=== PATIENT | female | born 2000 | race Caucasian/White ===

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

== ENCOUNTER → 2021-09-29 | Outpatient (CLI) | payer OTHER ==
--- NOTE | 2021-09-29 09:02 | US ---
EXAMINATION TYPE: US abdomen complete DATE OF EXAM: 09/29/2021 COMPARISON: NONE CLINICAL HISTORY: K21.9 EAOPHAGEAL REFLUX,R10.12 LUQ PAIN,R11.2 NAUS. Nausea EXAM MEASUREMENTS: Liver Length: 17.7 cm Gallbladder Wall: .2 cm CBD: .5 cm Spleen: 12.8 cm Right Kidney: 9.6 x 3.7 x 5.7 cm Left Kidney: 10.2 x 4.8 x 4.2 cm Pancreas: Tail obscured by overlying bowel gas Liver: wnl Gallbladder: wnl Evidence for sonographic Garcia's sign: No CBD: wnl Spleen: wnl Right Kidney: wnl Left Kidney: wnl Upper IVC: wnl Abd Aorta: wnl The liver is homogenous. The intrahepatic portion of the IVC and proximal abdominal aorta are within normal limits. There is no evidence of cholelithiasis. Common bile duct is unremarkable. The visu alized portions of the pancreas are homogenous. The spleen is unremarkable. Kidneys are symmetric a nd free of hydronephrosis. No renal lesions are seen. IMPRESSION: WNL
--- NOTE | 2021-09-29 09:42 | FL ---
EXAMINATION TYPE: FL UGI DATE OF EXAM: 09/29/2021 CLINICAL HISTORY: K21.9 EAOPHAGEAL REFLUX,R10.12 LUQ PAIN,R11.2 NAUS TECHNIQUE: An air contrast UGI study is performed. COMPARISON: None FINDINGS: Packing And Wrapping Supervisor image of the abdomen shows no gross abnormality.The esophagus shows normal motility and emptying into the stomach. No evidence of hiatal hernia or stricture noted. There is reflux note d during the course of the study to the midesophagus. The stomach shows normal distensibility, perist alsis, and mucosal folds. No evidence of any mass or ulcer disease. No significant gastroesophageal reflux was seen during real time performance of this study.The duodenal bulb, sweep, and proximal sm all bowel loops are unremarkable. IMPRESSION: Gastroesophageal reflux without evidence for esophagitis.
== END | disposition home or self-care (01) ==
LOC: RADUSWWP 07:54
PROVIDERS: ATTEND Family Medicine
DX: K21.9 Gastro-esophageal reflux disease without esophagitis (principal)
CPT/HCPCS: 74240; 76700